=== PATIENT | male | born 1990 ===

== ENCOUNTER 2021-05-24 10:52 | Emergency (ER) | payer SELFPAY ==
[2021-05-24] MEDS ORDERED: TETANUS,DIPH,PERTUSS(ACELL) VACCINE 0.5 ML SYRINGE IM ONE (11:10)
[2021-05-24] MEDS ORDERED: HYDROcodone/ACETAMINOPHEN 5-325 MG TAB PO ONE (11:10)
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
[2021-05-24 13:35] VITALS: BP 130/76
== END 2021-05-24 13:35 | disposition home or self-care (01) ==
LOC: ED 10:52
DX: S80.11XA Contusion of right lower leg, initial encounter (principal); S80.811A Abrasion, right lower leg, initial encounter; W22.8XXA Striking against or struck by other objects, initial encounter; Y93.89 Activity, other specified; Y92.89 Other specified places as the place of occurrence of the external cause; Y99.8 Other external cause status
CPT/HCPCS: 90471; 90715; 99284